=== PATIENT | female | born 1965 | race Caucasian/White ===

== ENCOUNTER → 2020-07-12 | Outpatient (CLI) | payer OTHER ==
[2020-07-13 11:14] LABS: RHEUMATOID ARTHRITIS FACTOR <10.0 IU/mL (0.0-13.9)
[2020-07-13 23:11] LABS: CCP ANTIBODIES IGG/IGA 5 units (0-19)
== END ==
LOC: RAD 11:31
PROVIDERS: Nurse Practitioner Family
DX: R10.31 Right lower quadrant pain (principal); R10.32 Left lower quadrant pain; D89.9 Disorder involving the immune mechanism, unspecified; M25.50 Pain in unspecified joint; R76.8 Other specified abnormal immunological findings in serum
CPT/HCPCS: 36415; 73522; 81001; 82550; 82570; 83520; 84156; 85652; 86140; 86200; 86431

== ENCOUNTER 2020-12-20 19:58 | Emergency (ER) | payer OTHER ==
[2020-12-20 21:04] LABS: HEMOGLOBIN 12.8 gm/dl (12.3-15.3); RED BLOOD COUNT 4.26 M/UL (4.00-5.10); WHITE BLOOD COUNT 13.1 K/UL (4.5-11.0)
[2020-12-20] MEDS ORDERED: BACTRIM 400-801 EACH PO (21:40)
[2020-12-20] MEDS ORDERED: HYDROCODON-ACE1 EAC4 PO (21:40)
== END 2020-12-20 21:48 | disposition home or self-care (01) ==
LOC: ER1 19:58
PROVIDERS: Physician Assistant
DX: N76.4 Abscess of vulva (principal); Z88.0 Allergy status to penicillin
CPT/HCPCS: 56405; 80053; 83605; 85025; 85652; 86140; 99283

== ENCOUNTER → 2020-12-28 | Outpatient (CLI) | payer OTHER ==
[~2020-12-28] MED LIST: BACTRIM 400-801 EACH PO; HYDROCODON-ACE1 EAC4 PO
== END ==
LOC: MAMO 13:47
DX: Z12.31 Encounter for screening mammogram for malignant neoplasm of breast (principal)
CPT/HCPCS: 77063; 77067